=== PATIENT | female | born 1965 | race Caucasian/White ===

== ENCOUNTER → 2016-06-17 | Outpatient (REF) | payer BC | LOC: M LAB REF 16:56 | PROVIDERS: ATTEND Specialist | DX: Z12.4 Encounter for screening for malignant neoplasm of cervix (principal); R87.613 High grade squamous intraepithelial lesion on cytologic smear of cervix (HGSIL); R87.810 Cervical high risk human papillomavirus (HPV) DNA test positive ==

== ENCOUNTER → 2016-06-22 | Outpatient (CLI) | payer BC ==
--- NOTE | 2016-06-22 16:41 | REP ---
Pelvic sonography: History: Dysfunctional uterine bleeding for 3 months. Findings: The uterus is quite enlarged measuring 12.2 x 4.8 x 8.0 cm. Endometrial echo is 0.6 cm thick and centrally placed. Uterus is tipped somewhat to the right. The uterus is best seen on transabdominal scanning. Transvaginal scanning demonstrates a fluid collection in the region of the cervix measuring 3.9 x 2.7 x 1.8 cm. The endocervical canal appears dilated on transabdominal imaging. There is a 1.5 cm nodular structure within the hypoechoic fluid. Polyp versus thrombus. This does not appear to have vascular flow on Doppler. There is a posterior fundal fibroid measuring 2.6 x 2.6 x 2.4 cm. Neither ovary could be visualized transabdominally or trans-vaginally. No free cul-de-sac fluid is seen. Impression: Complex fluid and soft tissue components in the cervix with dilated endocervical canal on transabdominal imaging. Uterus is enlarged with at least one fibroid. Neither ovary could be visualized. Cervical or endometrial neoplastic disease cannot be excluded. Signed by Jasper Duncan MD 06/22/2016 04:46 P
== END ==
LOC: M SMT 14:47 → EDUNIT# 15:00
PROVIDERS: ATTEND Specialist
DX: N93.8 Other specified abnormal uterine and vaginal bleeding (principal)

== ENCOUNTER → 2016-06-28 | Outpatient (CLI) | payer BC ==
[2016-06-28 13:38] LABS: MEAN CORPUSCULAR HGB CONC 32.1 g/dl (32.0-36.5); MEAN CORPUSCULAR VOLUME 96.6 fl (80.0-96.0); RED CELL DISTRIBUTION WIDTH 12.4 % (11.5-14.5); WHITE BLOOD COUNT 6.2 K/mm3 (4.0-10.0)
== END ==
LOC: M SMT 09:03
PROVIDERS: ATTEND Specialist
DX: N93.8 Other specified abnormal uterine and vaginal bleeding (principal)

== ENCOUNTER → 2016-06-28 | Outpatient (REF) | payer BC | LOC: M LAB REF 09:02 | PROVIDERS: ATTEND Specialist | DX: D06.9 Carcinoma in situ of cervix, unspecified (principal) ==

== ENCOUNTER → 2016-06-30 | Outpatient (CLI) | payer BC ==
--- NOTE | 2016-07-16 12:44 | REPMRS ---
Patient History The patient states she had a clinical breast exam in 06/2016. No known family history of cancer. Took hormonal contraceptives for 2 years. Digital Woman Screen Mammo: June 30, 2016 - Exam #: [id number] Bilateral CC and MLO view(s) were taken. Technologist: Alessandra Ramsey, Technologist Prior study comparison: 2010, digital bilateral screening mammo, performed at [facility]. FINDINGS: The breast tissue is heterogeneously dense. This may lower the sensitivity of mammography. There has been no change in the appearance of the mammogram from the prior studies. There is a moderate amount of residual fibroglandular tissue which is fairly symmetric. There is no interval development of dominant mass, areas of architectural distortion, or clustered microcalcification typical of malignancy. ASSESSMENT: BI-RADS/ACR category 1 mammogram. Negative. Recommendation Routine screening mammogram in 1 year (for women over age 40). This mammogram was interpreted with the aid of an FDA-approved computer-aided dectection system. Electronically Signed By: Gary Tapia MD 07/16/16 [id number]
== END ==
LOC: M WHC 08:58
PROVIDERS: ATTEND Specialist
DX: Z12.31 Encounter for screening mammogram for malignant neoplasm of breast (principal); Z92.0 Personal history of contraception

== ENCOUNTER → 2016-07-20 | Outpatient (CLI) | payer BC ==
[~2016-07-20] MED LIST: ATOR1TAB19 PO; FLON1SPR; LISI-542 PO
[2016-07-20 14:11] LABS: BASO % 0.3 % (0.0-1.0); EOS # 0.1 K/mm3 (0.0-0.50); LARGE UNSTAINED CELL # 0.1 K/mm3 (0.0-0.4); LARGE UNSTAINED CELL % 1.8 % (0.0-4.0); LYMPH # 2.1 K/mm3 (1.5-4.5); LYMPH % 38.2 % (24.0-44.0); MEAN CORPUSCULAR HEMOGLOBIN 30.8 pg (27.0-33.0); MEAN CORPUSCULAR HGB CONC 32.6 g/dl (32.0-36.5); MEAN CORPUSCULAR VOLUME 94.4 fl (80.0-96.0); MONO # 0.3 K/mm3 (0.0-0.8); MONO % 5.8 % (0.0-5.0); NEUTROPHILS # 2.9 K/mm3 (1.8-7.7); NEUTROPHILS % 52.9 % (36.0-66.0); PLATELET COUNT, AUTOMATED 251 k/mm3 (150-450); RED CELL DISTRIBUTION WIDTH 12.1 % (11.5-14.5); WHITE BLOOD COUNT 5.4 K/mm3 (4.0-10.0)
[2016-07-20 14:19] LABS: ALBUMIN 3.4 GM/DL (3.2-5.2); ALBUMIN/GLOBULIN RATIO 0.94 (1.00-1.93); ALKALINE PHOSPHATASE 57 U/L (45-117); ALT/SGPT 13 U/L (12-78); ANION GAP 6 MEQ/L (8-16); AST/SGOT 11 U/L (15-37); BILIRUBIN,TOTAL 0.4 MG/DL (0.2-1.0); BLOOD UREA NITROGEN 9 MG/DL (7-18); CALCIUM LEVEL 8.5 MG/DL (8.5-10.1); CARBON DIOXIDE LEVEL 28 MEQ/L (21-32); CHLORIDE LEVEL 107 MEQ/L (98-107); CREATININE FOR GFR 0.63 MG/DL (0.55-1.02); GLOMERULAR FILTRATION RATE > 60.0 (>58); GLUCOSE, FASTING 102 MG/DL (70-105); POTASSIUM SERUM 4.5 MEQ/L (3.5-5.1); SODIUM LEVEL 141 MEQ/L (136-145)
[2016-07-20 14:20] LABS: INR 1.03
== END ==
LOC: M SMT 10:08
PROVIDERS: ATTEND Physician Assistant
DX: Z01.818 Encounter for other preprocedural examination (principal)

== ENCOUNTER 2016-07-29 05:42 | Day surgery (SDC) | payer BC ==
[2016-07-29] VITALS (8 sets, daily range): BP systolic 128–138; BP diastolic 60–74
[~2016-07-29] VITALS: Ht 167.6 cm; Wt 85.3 kg
[2016-07-29] MEDS ORDERED: LR 1,000 ML IV SCH ×3 (06:00→13:00)
[2016-07-29] MEDS ORDERED: OXYC1TAB23 PO (06:32)
[2016-07-29] MEDS ORDERED: KETOROLAC 60 MG/2 ML VIAL (J1885) As Ordered ONE (06:32)
[2016-07-29] MEDS ORDERED: ONDANSETRON 4MG/2ML VIAL (J2405) As Ordered ONE ×2 (06:32→12:12)
[2016-07-29] MEDS ORDERED: PROPOFOL 200 MG/20 ML VIAL As Ordered ONE (06:32)
[2016-07-29] MEDS ORDERED: dexameTHASONE 4 MG/ML 1ML VIAL (J1100) As Ordered ONE (06:32)
[2016-07-29] MEDS ORDERED: NEOSTIGMINE 1MG/ML 5 ML SYRINGE (J2710) As Ordered ONE (06:33)
[2016-07-29] MEDS ORDERED: LIDOCAINE 2% INJ 100 MG/5 ML SDV (FOR ANES.) As Ordered ONE (06:33)
[2016-07-29] MEDS ORDERED: GLYCOPYRROLATE INJ 0.2 MG/ML 2 ML VIAL As Ordered ONE (06:33)
[2016-07-29] MEDS ORDERED: ROCURONIUM BROMIDE 50 MG/5 ML VIAL As Ordered ONE (06:33)
[2016-07-29 06:35] LABS: MEAN CORPUSCULAR HEMOGLOBIN 31.1 pg (27.0-33.0); MEAN CORPUSCULAR HGB CONC 33.4 g/dl (32.0-36.5); MEAN CORPUSCULAR VOLUME 93.2 fl (80.0-96.0); RED CELL DISTRIBUTION WIDTH 12.2 % (11.5-14.5); WHITE BLOOD COUNT 8.4 K/mm3 (4.0-10.0)
[2016-07-29] MEDS ORDERED: METHYLENE BLUE 0.5% (5MG/ML) 10 ML AMP (PROVAYBLUE)(Q9968 PER 1MG) As Ordered ONE (07:10)
[2016-07-29] MEDS ORDERED: BUPIVACAINE HCL 0.25% 30 ML VIAL As Ordered ONE (07:10)
[2016-07-29] MEDS ORDERED: HYDROmorphone HCL 2 MG/ML 1ML VIAL (J1170) As Ordered ONE (09:00)
[2016-07-29] MEDS ORDERED: PHENYLephrine HCL 500 MCG/5 ML (100MCG/ML) SYRINGE (J2370) As Ordered ONE (11:47)
[2016-07-29] MEDS ORDERED: ePHEDrine SULFATE 25 MG/5 ML(5MG/ML) SYRINGE As Ordered ONE (11:47)
[2016-07-29] MEDS ORDERED: LABETALOL HCL 100 MG/20 ML VIAL As Ordered ONE (11:47)
[2016-07-29] MEDS ORDERED: fentaNYL 250 MCG/5 ML INJECTION (J3010) As Ordered ONE (12:26)
[2016-07-29] MEDS ORDERED: MIDAZOLAM INJ 2 MG/2 ML VIAL (J2250) As Ordered ONE (12:26)
[2016-07-29] MEDS ORDERED: METOCLOPRAMIDE INJ 10MG/2ML VIAL (J2765) As Ordered ONE (12:35)
[2016-07-29] MEDS ORDERED: fentaNYL 100 MCG/2 ML INJECTION (J3010) As Ordered ONE (12:38)
[2016-07-29] MEDS ORDERED: fentaNYL 100 MCG/2 ML INJECTION (J3010) IV PRN (13:00)
[2016-07-29] MEDS ORDERED: METOCLOPRAMIDE INJ 10MG/2ML VIAL (J2765) IV PRN (13:00)
[2016-07-29] MEDS ORDERED: MORPHINE 2 MG/ML 1ML SYRINGE IV PRN (13:00)
[2016-07-29] MEDS ORDERED: MORPHINE 4 MG/ML 1ML SYRINGE IV PRN (13:00)
[2016-07-29] MEDS ORDERED: NORCO, ANEXSIA 5/325MG TABLET (HYDROcodone/ACETAMINOPHEN) PO PRN (13:00)
[2016-07-29] MEDS ORDERED: PERCOCET 5MG/325MG TAB PO PRN (13:00)
[2016-07-29] MEDS ORDERED: ONDANSETRON 4MG/2ML VIAL (J2405) IV PRN ×2 (13:00)
[2016-07-29] MEDS: LR 1,000 ML IV SCH ×2 (14:35→21:00)
[2016-07-29] MEDS: ceFAZolin SOD 1 GM in D5W MINI-BAG PLUS 50 ML IV SCH ×2 (15:35→20:15)
[2016-07-29] MEDS: PERCOCET 5MG/325MG TAB PO PRN (15:40)
--- NOTE | 2016-07-29 20:07 | RO ---
DATE OF PROCEDURE: 07/29/2016 PREPROCEDURE DIAGNOSES: Menorrhagia, fibroids, severe cervical dysplasia. POSTPROCEDURE DIAGNOSES: Menorrhagia, fibroids, severe cervical dysplasia. OPERATIVE PROCEDURES: Robotic assisted laparoscopic hysterectomy, bilateral salpingectomy, cystoscopy. SURGEON: Kuldeep Panchal MD COTTON WEIGHER: Sun Horton ANESTHESIA: General endotracheal. ESTIMATED BLOOD LOSS: 400 mL. FINDINGS: Enlarged irregular fibroid uterus with adhesion of the uterus to the anterior abdominal wall and bladder to the lower uterine segment. Normal ovaries and fallopian tubes bilaterally. Evidence of prior tubal sterilization. Normal upper abdomen. DESCRIPTION OF PROCEDURE: The patient was taken to the operating room where general endotracheal anesthesia was induced. She was prepped and draped in a sterile fashion in the dorsal lithotomy position. A Dominguez catheter was placed and VCare uterine manipulator was placed. A periumbilical incision was made with a scalpel. A Veress needle was placed through this incision and a pneumoperitoneum was created. The Veress needle was removed. A 11 mm trocar was placed through this incision using Visiport. Three 8 mm suprapubic ports were placed under direct visualization. The patient was placed in Trendelenburg position and the [employer] surgical robot was docked. The PK dissector and monopolar EndoShears were used to coagulate and incise the utero-ovarian ligaments, fallopian tube and round ligaments. The anterior and posterior leafs of the broad ligament were . A bladder flap was created. The uterine vessels were coagulated and incised. Adhesions of the uterus in the anterior abdominal wall were taken down sharply. Colpotomy was created and extended and circumferentially around the upper vagina at the level of the VCare cup. There was difficulty extending it circumferentially around the cervix due to malposition of the VCare cup due to the angle of the cervix. The remainder of the vagina was excised vaginally, and specimen including the uterus and cervix was removed. The surgeon again returned to the robotic console. The fallopian tubes were excised and removed. The vaginal cuff was closed with V-Loc sutures in a running fashion. Pelvis was copiously irrigated. Good hemostasis was noted. Cystoscopy was performed using 7 degrees cystoscope. Bilateral ureter jets were identified. There is no evidence of injury to the bladder. The patient previously received methylene blue dye intravenously. Sun Horton assisted with every aspect of the procedure including insertion of the ports, manipulation of the uterus, and removal of the specimens. She also was involved with removal of ports and closure of the incisions. All instruments were removed. Skin was closed with #4-0 Monocryl with subcuticular sutures. Sponge, instrument and needle counts were correct. The patient was extubated and went to recovery room in stable condition.
[2016-07-29] MEDS: DOCUSATE SODIUM 100 MG CAP PO SCH (20:15)
[2016-07-29] MEDS: KETOROLAC 30 MG/ML VIAL (J1885) IV PRN (21:21)
[2016-07-30] VITALS: BP 127/69
[2016-07-30 04:00] VITALS: BP 131/68
[2016-07-30] MEDS: KETOROLAC 30 MG/ML VIAL (J1885) IV PRN (06:43)
[2016-07-30 07:11] LABS: MEAN CORPUSCULAR HEMOGLOBIN 30.4 pg (27.0-33.0); MEAN CORPUSCULAR HGB CONC 32.1 g/dl (32.0-36.5); MEAN CORPUSCULAR VOLUME 94.7 fl (80.0-96.0); RED CELL DISTRIBUTION WIDTH 12.4 % (11.5-14.5); WHITE BLOOD COUNT 15.2 K/mm3 (4.0-10.0)
[2016-07-30 08:00] VITALS: BP 137/70
[2016-07-30] MEDS: DOCUSATE SODIUM 100 MG CAP PO SCH (08:15)
[2016-07-30] MEDS: PERCOCET 5MG/325MG TAB PO PRN (09:52)
== END 2016-07-30 10:05 | disposition home or self-care (01) ==
LOC: M SDC 05:42 → M PED 12:57 → M SDC 07-30 10:05
PROVIDERS: ATTEND Specialist
DX: N92.0 Excessive and frequent menstruation with regular cycle (principal); N87.9 Dysplasia of cervix uteri, unspecified; D25.9 Leiomyoma of uterus, unspecified; I10 Essential (primary) hypertension; D48.5 Neoplasm of uncertain behavior of skin; J32.0 Chronic maxillary sinusitis; E78.2 Mixed hyperlipidemia; R29.898 Other symptoms and signs involving the musculoskeletal system; R06.83 Snoring; D64.9 Anemia, unspecified; T88.59XD Other complications of anesthesia, subsequent encounter; G47.9 Sleep disorder, unspecified; Z88.5 Allergy status to narcotic agent; Z79.899 Other long term (current) drug therapy; Z98.51 Tubal ligation status
CPT/HCPCS: 36415; 58571; 85027; 86850; 86900; 86901; 88307; 96375; J0690; J1100; J1170; J1885; J2250; J2370; J2405; J2710; J2765; J3010; Q9968